=== PATIENT | female | born 1965 | race Caucasian/White ===

== ENCOUNTER 2020-06-26 14:25 | Outpatient (CLI) | payer BC | END 2020-06-26 14:26 | disposition home or self-care (01) | LOC: CSHRAD 14:25 | PROVIDERS: ATTEND Internal Medicine Rheumatology | DX: M79.641 Pain in right hand (principal); M79.642 Pain in left hand ==

== ENCOUNTER 2020-10-27 08:56 | Day surgery (SDC) | payer BC ==
[2020-10-23 14:26] VITALS: BMI 26.4
[2020-10-27] MEDS ORDERED: Lidocaine 1% MPF 2 ML VIAL ONE (09:40)
[2020-10-27] MEDS ORDERED: Bupivacaine PF 0.5% 30 ML VIAL ONE (10:34)
[2020-10-27] MEDS ORDERED: Neomycin-Polymyxin 1 ML AMP ONE (10:34)
[2020-10-27] MEDS ORDERED: Midazolam HCl 2 mg/2 ml Vial ONE (11:04)
[2020-10-27] MEDS ORDERED: CEFAZOLIN 1 GM VIAL ONE (11:07)
[2020-10-27] MEDS ORDERED: Fentanyl 100 MCG/2 ML VIAL ONE (11:09)
[2020-10-27] MEDS ORDERED: PROPOFOL 20 ML ONE ×2 (11:09→11:21)
[2020-10-27] MEDS ORDERED: Dexamethasone 20 MG/5 ML VIAL ONE (11:28)
[2020-10-27] MEDS ORDERED: Ondansetron PF 4 MG/2 ML Vial ONE (11:28)
[2020-10-27] MEDS ORDERED: Meperidine HCl/PF 25 MG/ML VIAL ONE (12:08)
== END 2020-10-27 13:13 | disposition home or self-care (01) ==
LOC: CSHSDC 08:56
PROVIDERS: ATTEND Podiatrist Foot & Ankle Surgery
DX: M77.42 Metatarsalgia, left foot (principal); F31.9 Bipolar disorder, unspecified; E03.9 Hypothyroidism, unspecified
CPT/HCPCS: 76000; J0690; J1100; J2175; J2250; J2405; J2704; J3010; S0020

== ENCOUNTER 2021-01-30 09:16 | Outpatient (CLI) | payer BC ==
[2021-01-30 09:58] LABS: Hemoglobin 14.2 g/dL (12.0-15.5); Mean Corpuscular HGB CONC 33.4 g/dL (32.0-36.0); Mean Corpuscular Hemoglobin 30.1 pg (27.0-33.0); Mean Platelet Volume 10.7 fl (7.4-10.4); Platelet Count 209 10x3/uL (150-450); RBC Distribution Width 12.7 % (11.5-14.5); Red Blood Cell (RBC) Count 4.72 10x6/uL (3.90-5.03); White Blood Cell (WBC) Count 4.5 10x3/uL (3.5-10.5)
[2021-01-30 10:42] LABS: Anion Gap 12 mmol/L (10-20); BUN (Urea Nitrogen) 23 mg/dL (9.8-20.1); Carbon Dioxide 24 mmol/L (22-29); Chloride 108 mmol/L (98-107); Potassium 3.8 mmol/L (3.5-5.1); Sodium 140 mmol/L (136-145)
[2021-01-30 10:43] LABS: Calc. Creatinine Clearance 0 mL/min (70-130); Calcium 9.1 mg/dL (7.8-10.44); Glucose 125 mg/dL (70-105)
[2021-01-30 17:34] LABS: SARS-CoV-2 PCR by NAA Not Detected (NotDetected)
== END 2021-01-30 09:17 | disposition home or self-care (01) ==
LOC: CSHLAB 09:16
PROVIDERS: ATTEND Podiatrist Foot & Ankle Surgery
DX: Z01.812 Encounter for preprocedural laboratory examination (principal); Z20.822 Contact with and (suspected) exposure to COVID-19; M77.41 Metatarsalgia, right foot
CPT/HCPCS: 80048; 85027; U0003; U0005

== ENCOUNTER 2021-02-04 09:36 | Day surgery (SDC) | payer BC ==
[2021-02-03 09:23] VITALS: BMI 27.4
[2021-02-04] MEDS ORDERED: Bupivacaine PF 0.5% 30 ML VIAL ONE (10:12)
[2021-02-04] MEDS ORDERED: Neomycin-Polymyxin 1 ML AMP ONE (10:12)
[2021-02-04] MEDS ORDERED: Lidocaine 1% MPF 2 ML VIAL ONE (10:54)
[2021-02-04] MEDS ORDERED: CEFAZOLIN 1 GM VIAL ONE (11:53)
[2021-02-04] MEDS ORDERED: PROPOFOL 20 ML ONE (11:59)
[2021-02-04] MEDS ORDERED: Lidocaine 1% PF 5 ML VIAL ONE (11:59)
[2021-02-04] MEDS ORDERED: Fentanyl 100 MCG/2 ML VIAL ONE (11:59)
[2021-02-04] MEDS ORDERED: Ondansetron PF 4 MG/2 ML Vial ONE (12:21)
[2021-02-04] MEDS ORDERED: Acetaminophen 325 MG TAB ONE (13:10)
== END 2021-02-04 13:45 | disposition home or self-care (01) ==
LOC: CSHSDC 09:36
PROVIDERS: ATTEND Podiatrist Foot & Ankle Surgery
DX: M77.41 Metatarsalgia, right foot (principal); E55.9 Vitamin D deficiency, unspecified; E03.9 Hypothyroidism, unspecified; Z79.899 Other long term (current) drug therapy; Z77.22 Contact with and (suspected) exposure to environmental tobacco smoke (acute) (chronic); F31.9 Bipolar disorder, unspecified
CPT/HCPCS: 76000; C1713; C1769; J0690; J2405; J2704; J3010; S0020

== ENCOUNTER 2023-01-27 04:18 | Emergency (ER) | payer BC ==
[2023-01-27] MEDS ORDERED: Ondansetron PF 4 MG/2 ML Vial ONE (04:42)
[2023-01-27 04:55] LABS: #Eosinphils 0.1 10x3/uL (0.0-0.5); #Monocytes 0.3 10x3/uL (0.0-1.1); #Neutrophils 5.5 10x3/uL (1.5-8.4); %Basophils 0.3 % (0.0-2.0); %Eosinophils 0.7 % (0.0-6.0); %Lymphocytes 14.6 % (18.0-47.0); %Monocytes 4.2 % (0.0-10.0); %Neutrophils 80.1 % (40.0-75.0); Hematocrit 45.6 % (34.9-44.5); Hemoglobin 15.5 g/dL (12.0-15.5); Mean Corpuscular Hemoglobin 29.9 pg (27.0-33.0); Mean Corpuscular Volume 87.9 fl (81.6-98.3); Mean Platelet Volume 10.3 fl (7.4-10.4); Platelet Count 254 10x3/uL (150-450); RBC Distribution Width 12.7 % (11.5-14.5); Red Blood Cell (RBC) Count 5.19 10x6/uL (3.90-5.03); White Blood Cell (WBC) Count 6.9 10x3/uL (3.5-10.5)
[2023-01-27] MEDS ORDERED: Prochlorperazine 10 MG/2 ML VIAL ONE (05:00)
[2023-01-27] MEDS ORDERED: Ketorolac Tromethamine 30 MG/ML VIAL ONE (05:01)
[2023-01-27 05:04] LABS: ALT (SGPT) 18 U/L (8-55); AST (SGOT) 17 U/L (5-34); Albumin 4.3 g/dL (3.5-5.0); Alkaline Phosphatase 94 U/L (40-110); Anion Gap 16 mmol/L (10-20); BUN (Urea Nitrogen) 18 mg/dL (9.8-20.1); Bilirubin, Total 0.4 mg/dL (0.2-1.2); Calc. Creatinine Clearance 0 mL/min (70-130); Calcium 9.4 mg/dL (7.8-10.44); Carbon Dioxide 21 mmol/L (22-29); Chloride 106 mmol/L (98-107); Estimated GFR 101; Globulin 2.9 g/dL (2.4-3.5); Glucose 96 mg/dL (70-105); Lipase 36 U/L (8-78); Protein, Total 7.2 g/dL (6.0-8.3); Sodium 139 mmol/L (136-145)
== END 2023-01-27 06:16 | disposition home or self-care (01) ==
LOC: CSHERS 04:18
DX: R11.2 Nausea with vomiting, unspecified (principal)
CPT/HCPCS: 80053; 83605; 83690; 85025; 93005; 96361; 96374; 96375; J0780; J1885; J2405